=== PATIENT | female | born 1955 | race Caucasian/White ===

== ENCOUNTER 2016-07-18 07:55 | Emergency (ER) | payer OTHER ==
[2016-07-18] MEDS ORDERED: SODIUM CHLORIDE 0.9% 1,000 ML IV STA ×2 (08:34→10:12)
[2016-07-18] MEDS ORDERED: METOCLOPRAMIDE 5 MG/ML 2 ML VIAL IVP STA (08:34)
--- NOTE | 2016-07-18 08:38 | ED ---
General Adult HPI - General Chief complaint: Nausea/Vomiting/Diarrhea Stated complaint: NAUSEA, VOMITING, HEADACHE Time Seen by Provider: 07/18/16 08:31 Source: patient, RN notes reviewed Mode of arrival: EMS Limitations: no limitations - History of Present Illness Initial comments: 60-year-old female presents to the emergency Department chief complaint of headache nausea vomiting. Patient states she woke around 2:00 she had nausea vomiting she felt she could have diarrhea but she never actually did as well as a headache. Patient states that she is having hot flashes. Patient states he did not seem to be associated with the vomiting. Patient states due to the fact that she was feeling so bad she did call the ambulance bring her to the emergency department. Patient states that this time after receiving the medication and then her nausea and vomiting has improved her headache has slightly end. Patient states that this time she has no chest pain but she does have chest pain. Patient states that she felt normal yesterday all she's had over the last 2 days with a mild cold. Patient states that she was concerned due to her symptoms.Patient denies any recent fever, chills, shortness of breath , back pain, numbness or tingling, dysuria or hematuria, constipation or diarrhea, visual changes, or any other current symptoms. - Related Data Home Medications Medication Instructions Recorded Confirmed Cholecalciferol [Vitamin D3] 1,000 units PO DAILY 12/19/13 07/18/16 Enalapril/Hydrochlorothiazide 1 tab PO DAILY 12/19/13 07/18/16 [Vaseretic 5-12.5 mg] Omeprazole [PriLOSEC] 20 mg PO AC-BRKFST 12/19/13 07/18/16 Pravastatin Sodium [Pravachol] 40 mg PO DAILY 12/19/13 07/18/16 metFORMIN HCL [Glucophage] 500 mg PO DAILY 12/19/13 07/18/16 Cyanocobalamin [Vitamin B-12 1,000 mcg SQ QMONTH 07/18/16 07/18/16 Injection] FLUoxetine HCL [PROzac] 60 mg PO DAILY 07/18/16 07/18/16 Levothyroxine Sodium [Synthroid] 112 mcg PO DAILY 07/18/16 07/18/16 Meloxicam [Mobic] 7.5 mg PO DAILY 07/18/16 07/18/16 Potassium 595 mg PO DAILY 07/18/16 07/18/16 Ranitidine HCl [Zantac] 300 mg PO DAILY 07/18/16 07/18/16 Previous Rx's Medication Instructions Recorded Ciprofloxacin HCl [Cipro] 500 mg PO Q12HR #14 tablet 07/18/16 Metoclopramide [Reglan] 10 mg PO ACHS #10 tab 07/18/16 Allergies Allergy/AdvReac Type Severity Reaction Status Date / Time No Known Allergies Allergy Verified 07/18/16 08:41 Review of Systems ROS Statement: Those systems with pertinent positive or pertinent negative responses have been documented in the HPI. ROS Other: All systems not noted in ROS Statement are negative. Past Medical History Past Medical History: Diabetes Mellitus, GERD/Reflux, Hyperlipidemia, Osteoarthritis (OA), Thyroid Disorder History of Any Multi-Drug Resistant Organisms: None Reported Past Surgical History: Bariatric Surgery, Hernia Repair, Joint Replacement Additional Past Surgical History / Comment(s): UMBILICAL HERNIA, GASTRIC BYPASS( 2000), PANNICULECTOMY, VARICOSE VEINS, BREAST RECONSTRUCTION, FACE LIFT, FULL BODY LIFT, RIGHT KNEE REPLACEMENT (OCTOBER 2013), LEFT KNEE REPLACEMENT (DECEMBER 2013 ) Past Anesthesia/Blood Transfusion Reactions: Motion Sickness, Postoperative Nausea & Vomiting (PONV) Past Psychological History: Depression Smoking Status: Former smoker Past Alcohol Use History: Rare Past Drug Use History: None Reported General Exam - General Exam Comments Initial Comments: General: The patient is awake and alert, in no distress, and does not appear acutely ill. Eye: Pupils are equal, round and reactive to light, extra-ocular movements are intact; there is normal conjunctiva bilaterally. No signs of icterus. Ears, nose, mouth and throat: There are moist mucous membranes. Neck: The neck is supple, there is no tenderness. Cardiovascular: There is a regular rate and rhythm. No murmur, rub or gallop is appreciated. Respiratory: Lungs are clear to auscultation, respirations are non-labored, breath sounds are equal. No wheezes, stridor, rales, or rhonchi. Gastrointestinal: Soft, non-distended, non-tender abdomen without masses or organomegaly noted. There is no rebound or guarding present. No CVA tenderness. Bowel sounds are unremarkable. Back: There is no tenderness to palpation in the midline. There is no obvious deformity. No rashes noted. Musculoskeletal: Normal ROM, no tenderness, There is no pedal edema. There is no calf tenderness or swelling. Sensation intact. Pulses equal bilaterally 2+. Neurological: CN II-XII intact, There are no obvious motor or sensory deficits. Coordination appears grossly intact. Speech is normal. Skin: Skin is warm and dry and no rashes or lesions are noted. Psychiatric: Cooperative, appropriate mood & affect, normal judgment. Limitations: no limitations Course Vital Signs 07/18/16 07/18/16 08:10 09:30 Temperature 97.9 F Pulse Rate 72 74 Respiratory 18 18 Rate Blood Pressure 192/93 161/86 O2 Sat by Pulse 99 98 Oximetry EKG Findings - EKG Comments: EKG Findings:: normal sinus rhythm 75 bpm, normal axis, no atopy, no S-T depressions or elevations, prolonged QT Medical Decision Making - Medical Decision Making 60-year-old male presents emergency chief complaint of nausea and vomiting. Patient's blood work is reviewed. At this time patient does have positive nitrate in the urine as well as signs of dehydration. This time patient received a liter of fluids as well as IV antibiotics. We discussed return parameters and follow-up. Patient stated she understood and all questions were answered. At this time the patient will be discharged home. - Lab Data Result diagrams: 07/18/16 08:25 07/18/16 08:25 Lab Results 07/18/16 07/18/16 07/18/16 Range/Units 08:25 08:25 08:25 WBC 7.7 (3.8-10.6) k/uL RBC 4.69 (3.80-5.40) m/uL Hgb 12.7 (11.4-16.0) gm/dL Hct 40.0 (34.0-46.0) % MCV 85.3 (80.0-100.0) fL MCH 27.1 (25.0-35.0) pg MCHC 31.8 (31.0-37.0) g/dL RDW 13.2 (11.5-15.5) % Plt Count 311 (150-450) k/uL Neutrophils % 74 % Lymphocytes % 17 % Monocytes % 4 % Eosinophils % 2 % Basophils % 1 % Neutrophils # 5.7 (1.3-7.7) k/uL Lymphocytes # 1.3 (1.0-4.8) k/uL Monocytes # 0.3 (0-1.0) k/uL Eosinophils # 0.2 (0-0.7) k/uL Basophils # 0.0 (0-0.2) k/uL Hypochromasia Slight PT (9.0-12.0) sec INR (<1.1) APTT (22.0-30.0) sec Sodium 141 (137-145) mmol/L Potassium 4.2 (3.5-5.1) mmol/L Chloride 104 (98-107) mmol/L Carbon Dioxide 20 L (22-30) mmol/L Anion Gap 17 mmol/L BUN 13 (7-17) mg/dL Creatinine 0.70 (0.52-1.04) mg/dL Est GFR (MDRD) Af Amer >60 (>60 ml/min/1.73 sqM) Est GFR (MDRD) Non-Af >60 (>60 ml/min/1.73 sqM) Glucose 231 H (74-99) mg/dL Calcium 9.1 (8.4-10.2) mg/dL Magnesium 1.2 L (1.6-2.3) mg/dL Total Bilirubin 0.4 (0.2-1.3) mg/dL AST 24 (14-36) U/L ALT 34 (9-52) U/L Alkaline Phosphatase 86 (38-126) U/L Total Creatine Kinase 43 (30-135) U/L CK-MB (CK-2) 0.6 (0.0-2.4) ng/mL CK-MB (CK-2) Rel Index 1.4 Troponin I <0.012 (0.000-0.034) ng/mL Total Protein 6.9 (6.3-8.2) g/dL Albumin 4.1 (3.5-5.0) g/dL Amylase 77 (30-110) U/L Lipase 155 (23-300) U/L Urine Color Urine Appearance (Clear) Urine pH (5.0-8.0) Ur Specific [place] (1.001-1.035) Urine Protein (Negative) Urine Glucose (UA) (Negative) Urine Ketones (Negative) Urine Blood (Negative) Urine Nitrate (Negative) Urine Bilirubin (Negative) Urine Urobilinogen (<2.0) mg/dL Ur Leukocyte Esterase (Negative) Urine RBC (0-5) /hpf Urine WBC (0-5) /hpf Ur Squamous Epith Cells (0-4) /hpf Urine Bacteria (None) /hpf Urine Mucus (None) /hpf 07/18/16 07/18/16 Range/Units 08:25 08:44 WBC (3.8-10.6) k/uL RBC (3.80-5.40) m/uL Hgb (11.4-16.0) gm/dL Hct (34.0-46.0) % MCV (80.0-100.0) fL MCH (25.0-35.0) pg MCHC (31.0-37.0) g/dL RDW (11.5-15.5) % Plt Count (150-450) k/uL Neutrophils % % Lymphocytes % % Monocytes % % Eosinophils % % Basophils % % Neutrophils # (1.3-7.7) k/uL Lymphocytes # (1.0-4.8) k/uL Monocytes # (0-1.0) k/uL Eosinophils # (0-0.7) k/uL Basophils # (0-0.2) k/uL Hypochromasia PT 10.5 (9.0-12.0) sec INR 1.0 (<1.1) APTT 20.9 L (22.0-30.0) sec Sodium (137-145) mmol/L Potassium (3.5-5.1) mmol/L Chloride (98-107) mmol/L Carbon Dioxide (22-30) mmol/L Anion Gap mmol/L BUN (7-17) mg/dL Creatinine (0.52-1.04) mg/dL Est GFR (MDRD) Af Amer (>60 ml/min/1.73 sqM) Est GFR (MDRD) Non-Af (>60 ml/min/1.73 sqM) Glucose (74-99) mg/dL Calcium (8.4-10.2) mg/dL Magnesium (1.6-2.3) mg/dL Total Bilirubin (0.2-1.3) mg/dL AST (14-36) U/L ALT (9-52) U/L Alkaline Phosphatase (38-126) U/L Total Creatine Kinase (30-135) U/L CK-MB (CK-2) (0.0-2.4) ng/mL CK-MB (CK-2) Rel Index Troponin I (0.000-0.034) ng/mL Total Protein (6.3-8.2) g/dL Albumin (3.5-5.0) g/dL Amylase (30-110) U/L Lipase (23-300) U/L Urine Color Light Yellow Urine Appearance Clear (Clear) Urine pH 6.0 (5.0-8.0) Ur Specific [place] 1.008 (1.001-1.035) Urine Protein Trace H (Negative) Urine Glucose (UA) 4+ H (Negative) Urine Ketones 2+ H (Negative) Urine Blood Negative (Negative) Urine Nitrate Positive H (Negative) Urine Bilirubin Negative (Negative) Urine Urobilinogen <2.0 (<2.0) mg/dL Ur Leukocyte Esterase Moderate H (Negative) Urine RBC 2 (0-5) /hpf Urine WBC 16 H (0-5) /hpf Ur Squamous Epith Cells <1 (0-4) /hpf Urine Bacteria Occasional H (None) /hpf Urine Mucus Rare H (None) /hpf - Radiology Data Radiology results: report reviewed, image reviewed Disposition Clinical Impression: UTI (urinary tract infection), Nausea & vomiting Disposition: HOME SELF-CARE Condition: Stable Instructions: Urinary Tract Infection in Women (ED) Additional Instructions: Please use medication as discussed. Please follow up with family doctor if symptoms have not improved over the next two days. Please return to the emergency room if your symptoms increase or worsen or for any other concerns. Prescriptions: Ciprofloxacin HCl [Cipro] 500 mg PO Q12HR #14 tablet Metoclopramide [Reglan] 10 mg PO ACHS #10 tab Referrals: Lui Francois MD [Primary Care Provider] - 1-2 days Time of Disposition: 10:33
[2016-07-18 09:03] LABS: Basophils % (A) 1 %; CH 26.8; CHCM 31.5; Eosinophils # (A) 0.2 k/uL (0-0.7); Eosinophils % (A) 2 %; HDW 2.63; HGB 12.7 gm/dL (11.4-16.0); Hypochromasia Slight; Luc # (Auto) 0.23; Luc % (Auto) 3; Lymphocytes # (A) 1.3 k/uL (1.0-4.8); Lymphocytes % (A) 17 %; MCH 27.1 pg (25.0-35.0); MCHC 31.8 g/dL (31.0-37.0); MCV 85.3 fL (80.0-100.0); Mean Platelet Volume 6.5; Monocytes # (A) 0.3 k/uL (0-1.0); Monocytes % (A) 4 %; Neutrophils # (A) 5.7 k/uL (1.3-7.7); Neutrophils % (A) 74 %; RBC 4.69 m/uL (3.80-5.40); RDW 13.2 % (11.5-15.5); WBC 7.7 k/uL (3.8-10.6); WBC (Perox) 8.01
[2016-07-18 09:08] LABS: Appearance,Urine Clear (Clear); Bacteria,Urine Occasional /hpf; Bilirubin,Urine Negative (Negative); Glucose,Urine (UA) 4+ (Negative); Leukocyte Esterase,Urine Moderate (Negative); Mucus,Urine Rare /hpf; Nitrite,Urine Positive (Negative); Particle Count 16754; Protein,Urine Trace (Negative); RBC,Urine 2 /hpf (0-5); Specific Gravity,Urine 1.008 (1.001-1.035); Squamous Epithelial Cell,Urine <1 /hpf (0-4); UA Billing (MACRO vs. MICRO) MICRO; Urobilinogen,Urine <2.0 mg/dL (<2.0); WBC,Urine 16 /hpf (0-5)
[2016-07-18 09:17] LABS: ALT 34 U/L (9-52); AST 24 U/L (14-36); Alkaline Phosphatase 86 U/L (38-126); Amylase 77 U/L (30-110); Anion Gap 17 mmol/L; Blood Urea Nitrogen 13 mg/dL (7-17); Calcium 9.1 mg/dL (8.4-10.2); Carbon Dioxide 20 mmol/L (22-30); Chloride 104 mmol/L (98-107); Glucose 231 mg/dL (74-99); Magnesium 1.2 mg/dL (1.6-2.3); Non-African American GFR(MDRD) >60 (>60 ml/min/1.73 sqM); Potassium 4.2 mmol/L (3.5-5.1); Sodium 141 mmol/L (137-145); Total Bilirubin 0.4 mg/dL (0.2-1.3); Total Protein 6.9 g/dL (6.3-8.2)
[2016-07-18 09:19] LABS: Prothrombin Time 10.5 sec (9.0-12.0)
[2016-07-18 09:21] LABS: Ketones,Urine 2+ (Negative)
[2016-07-18 09:22] LABS: Partial Thromboplastin Time 20.9 sec (22.0-30.0)
[2016-07-18 09:23] LABS: Creatine Kinase 43 U/L (30-135)
[2016-07-18 09:36] LABS: Creatine Kinase MB 0.6 ng/mL (0.0-2.4); Troponin I <0.012 ng/mL (0.000-0.034)
--- NOTE | 2016-07-18 09:53 | CT ---
EXAMINATION TYPE: CT brain wo con DATE OF EXAM: 07/18/2016 9:49 AM COMPARISON: NONE HISTORY: 60-year-old female with nausea & vomitting, Headache and Dizziness TECHNIQUE: Examination was done in axial plane without intravenous contrast. Coronal and sagittal reconstructio ns performed. CT DLP: 1012.70 mGycm Automated exposure control for dose reduction was used. FINDINGS: There is no evidence of acute intracranial hemorrhage, acute ischemic changes, mass, mass-effect, or extra-axial fluid collection. There is no effacement of cerebral sulci or basal subarachnoid cister ns. There is no hydrocephalus. There is no midline shift. Bailey-white matter distinction is preserv ed. Mild bifrontal cortical volume loss. Benign basal ganglia calcifications on the left. Patient's gaze is divergent suggesting underlying strabismus. Paranasal sinuses and mastoid air cells are well pneumatized. IMPRESSION: Mild bifrontal atrophy without acute intracranial abnormality seen.
--- NOTE | 2016-07-18 10:07 | XR ---
EXAMINATION TYPE: XR chest 2V DATE OF EXAM: 07/18/2016 9:51 AM COMPARISON: NONE HISTORY: Chest pain, nausea and vomiting TECHNIQUE: Frontal and lateral views of the chest are obtained. FINDINGS: There is no focal air space opacity, pleural effusion, or pneumothorax seen. The cardiac silhouette size is within normal limits. The osseous structures are intact. IMPRESSION: No acute cardiopulmonary process.
[2016-07-18] MEDS ORDERED: KETOROLAC 30 MG/ML 1 ML VIAL IVP STA (10:31)
[2016-07-18 11:36] VITALS: BP 149/79; PULSE 78; RESP 16; TEMP 97.8
== END 2016-07-18 11:35 | disposition home or self-care (01) ==
LOC: EC 07:55
DX: N39.0 Urinary tract infection, site not specified (principal); R11.2 Nausea with vomiting, unspecified; R51 Headache; E11.9 Type 2 diabetes mellitus without complications; R07.9 Chest pain, unspecified; K21.9 Gastro-esophageal reflux disease without esophagitis; E78.5 Hyperlipidemia, unspecified; E07.9 Disorder of thyroid, unspecified; M19.90 Unspecified osteoarthritis, unspecified site; Z79.84 Long term (current) use of oral hypoglycemic drugs; Z87.891 Personal history of nicotine dependence; Z79.899 Other long term (current) drug therapy
CPT/HCPCS: 99285; 96365; 96375 ×2; 96361 ×2; 36415; 93005; 80053; 82150; 82550; 82553; 83690; 83735; 84484; 85025; 85610; 85730; 81001; 71020; 70450; J2765; J0696; J1885

== ENCOUNTER 2019-07-12 06:52 | Day surgery (SDC) | payer OTHER ==
[2019-07-04 13:31] VITALS: BMI 37.2
[~2019-07-12 06:52] MED LIST: LACTATED RINGERS 1,000 ML IV SCH; LIDOCAINE 1% 20 ML VIAL (10MG/ML) FOR IV START INTRADERMA PRN
[2019-07-12 07:03] VITALS: TEMP 97.6
[2019-07-12 07:15] LABS: Glucose,Whole Blood 153 mg/dL (75-99)
[2019-07-12] MEDS ORDERED: PROPOFOL 10 MG/ML 20 ML VIAL IV ONE (07:46)
--- NOTE | 2019-07-12 08:06 | P.PCN ---
Date of Procedure: 07/12/19 Procedure(s) Performed: BRIEF HISTORY: Patient is a 63-year-old pleasant white male scheduled for an elective colonoscopy as a part of screening for colorectal neoplasia. She has family history of colon cancer diagnosed in her maternal and paternal grandmother in their 60s and 70s suspected. Her last colonoscopy was 5 years ago. PROCEDURE PERFORMED: Colonoscopy. PREOPERATIVE DIAGNOSIS:Screening for colon cancer/family history of colon cancer]. IV sedation per Anesthesia. PROCEDURE: After informed consent was obtained, the patient, was brought into the endoscopy unit. IV sedation was administered by Anesthesia under continuous monitoring. Digital rectal examination was normal. Initially the Olympus CF-160 flexible video colonoscope was then inserted in the rectum, gradually advanced into the cecum without any difficulty. Careful examination was performed as the scope was gradually being withdrawn. Ileocecal valve and the appendiceal orifice were visualized and appeared normal. Prep was excellent. Mucosa of the cecum, ascending colon, transverse colon, descending colon, sigmoid colon, and rectum appeared normal. Retroflexion was performed in the rectum and no lesions were seen. The patient tolerated the procedure well. IMPRESSION: Normal-appearing colon from rectum to cecum with no evidence of colorectal neoplasia. RECOMMENDATIONS: Findings of this examination were discussed with the patient as well as her family. She was advised to have a repeat screening colonoscopy in 5 years because of colon cancer.
[2019-07-12 08:30] VITALS: BP 114/74; PULSE 69; RESP 16
== END 2019-07-12 08:48 | disposition home or self-care (01) ==
LOC: ORWHC2ENDO 06:52
PROVIDERS: ATTEND Internal Medicine Gastroenterology
DX: Z12.11 Encounter for screening for malignant neoplasm of colon (principal); Z80.0 Family history of malignant neoplasm of digestive organs; F32.9 Major depressive disorder, single episode, unspecified; I10 Essential (primary) hypertension; E11.9 Type 2 diabetes mellitus without complications; Z79.890 Hormone replacement therapy; Z79.899 Other long term (current) drug therapy; Z79.84 Long term (current) use of oral hypoglycemic drugs; Z98.84 Bariatric surgery status; Z87.19 Personal history of other diseases of the digestive system; Z98.890 Other specified postprocedural states; Z96.653 Presence of artificial knee joint, bilateral
CPT/HCPCS: J2704; G0105

== ENCOUNTER → 2019-09-14 | Outpatient (CLI) | payer OTHER ==
[2019-09-14 09:01] LABS: HGB 11.4 gm/dL (11.4-16.0); Hypochromasia Moderate; MCH 24.4 pg (25.0-35.0); MCHC 30.7 g/dL (31.0-37.0); MCV 79.4 fL (80.0-100.0); Mean Platelet Volume 6.6; Platelet Count 413 k/uL (150-450); RBC 4.66 m/uL (3.80-5.40); RDW 14.2 % (11.5-15.5); WBC 7.4 k/uL (3.8-10.6)
[2019-09-14 15:56] LABS: African American GFR (CKD) 79.4 (60.0-200.0); Albumin 4.5 g/dL (3.80-4.90); Albumin/Globulin Ratio 1.96 (1.60-3.17); Anion Gap 7.3 mmol/L (4.00-12.00); Calcium 9.9 mg/dL (8.7-10.3); Carbon Dioxide 28.7 mmol/L (21.6-31.8); Chol/HDL Ratio 3.34; Globulin 2.3 g/dL (1.6-3.3); LDL Cholesterol,Calculated 105.4 mg/dL (0.0-131.0); Non-African American GFR(CKD) 68.5 (60.0-200.0); Potassium 4.5 mmol/L (3.5-5.5); Total Bilirubin 0.3 mg/dL (0.2-1.2); Total Protein 6.8 g/dL (6.2-8.2); VLDL Calculation 39.6 mg/dL (5.00-40.00)
[2019-09-14 17:13] LABS: Hemoglobin A1C 8.7 % (4.0-6.0)
== END | disposition home or self-care (01) ==
LOC: LABWHC1 08:21
PROVIDERS: ATTEND Family Medicine
DX: I10 Essential (primary) hypertension (principal); E11.9 Type 2 diabetes mellitus without complications; E03.9 Hypothyroidism, unspecified; E78.00 Pure hypercholesterolemia, unspecified
CPT/HCPCS: 36415; 80053; 80061; 83036; 84443; 85027

== ENCOUNTER → 2020-03-05 | Outpatient (CLI) | payer OTHER ==
--- NOTE | 2020-03-06 08:47 | MM ---
Reason for exam: screening (asymptomatic). Last mammogram was performed 4 years and 9 months ago. History: Patient is postmenopausal and is nulliparous. Retro-pectoral saline implants in both breasts, May 2007. Implant Removal of both breasts, May 2005. Implants in both breasts, June 2003. Physical Findings: A clinical breast exam by your physician is recommended on an annual basis and results should be correlated with mammographic findings. MG Screening Mammo Implant/CAD Bilateral CC, MLO, and ID view(s) were taken. Prior study comparison: June 12, 2015, bilateral MG screening mammo implant/CAD. October 25, 2012, CAD bilateral diagnostic mammogram. There are scattered fibroglandular densities. Benign appearing bilateral calcifications. No significant changes when compared with prior studies. ASSESSMENT: Benign, BI-RAD 2 RECOMMENDATION: Routine screening mammogram of both breasts in 1 year.
== END | disposition home or self-care (01) ==
LOC: RADMAMWWP 10:10
PROVIDERS: ATTEND Family Medicine
DX: Z12.31 Encounter for screening mammogram for malignant neoplasm of breast (principal); Z98.86 Personal history of breast implant removal
CPT/HCPCS: 77067

== ENCOUNTER → 2020-09-04 | Outpatient (CLI) | payer OTHER ==
[2020-09-04 15:07] LABS: HGB 10.4 g/dL (12.0-15.0); MCH 23.4 pg (27.0-32.0); MCHC 29.7 g/dL (32.0-37.0); MCV 78.7 fL (80.0-97.0); Mean Platelet Volume 9.4 fL (9.5-12.2); Platelet Count 373 X 10*3/uL (140-440); RBC 4.45 X 10*6/uL (4.10-5.20); RDW 16.3 % (11.5-14.5); WBC 7.04 X 10*3/uL (4.50-10.00)
[2020-09-04 15:34] LABS: African American GFR (CKD) 69.4 (60.0-200.0); Albumin 4.6 g/dL (3.80-4.90); Anion Gap 7.3 mmol/L (4.00-12.00); Calcium 9.5 mg/dL (8.7-10.3); Carbon Dioxide 28.7 mmol/L (21.6-31.8); Chol/HDL Ratio 3.62; Globulin 2.3 g/dL (1.6-3.3); LDL Cholesterol,Calculated 108.4 mg/dL (0.0-131.0); Non-African American GFR(CKD) 59.9 (60.0-200.0); Potassium 4.4 mmol/L (3.5-5.5); Total Bilirubin 0.4 mg/dL (0.3-1.2); Total Protein 6.9 g/dL (6.2-8.2); VLDL Calculation 35.6 mg/dL (5.00-40.00)
== END | disposition home or self-care (01) ==
LOC: LABWHC1 09:41
PROVIDERS: ATTEND Family Medicine
DX: E11.9 Type 2 diabetes mellitus without complications (principal); I10 Essential (primary) hypertension; E78.5 Hyperlipidemia, unspecified; E03.9 Hypothyroidism, unspecified
CPT/HCPCS: 36415; 80053; 80061; 83036; 84443; 85027

== ENCOUNTER → 2020-09-18 | Outpatient (CLI) | payer OTHER | END | disposition home or self-care (01) | LOC: LABWHC1 11:34 | PROVIDERS: ATTEND Family Medicine | DX: Z86.16 Personal history of COVID-19 (principal) | CPT/HCPCS: 36415; 86769 ==

== ENCOUNTER 2021-02-02 06:41 | Day surgery (SDC) | payer OTHER ==
[2021-01-29 14:08] VITALS: BMI 37.2
[~2021-02-02 06:41] MED LIST changes: -LIDOCAINE 1% 20 ML VIAL (10MG/ML) FOR IV START INTRADERMA PRN
[2021-02-02 07:08] VITALS: RESP 16; TEMP 97.9
[2021-02-02] MEDS ORDERED: LIDOCAINE 1% (10MG/ML) FOR IV START INTRADERMA ONE (07:18)
[2021-02-02 07:19] LABS: Glucose,Whole Blood 145 mg/dL (75-99)
[2021-02-02] MEDS ORDERED: PROPOFOL 10 MG/ML 20 ML VIAL IV ONE (07:28)
[2021-02-02] MEDS ORDERED: LIDOCAINE 1% INJ 10MG/ML (20 ML MDV) ONE (07:28)
--- NOTE | 2021-02-02 07:50 | P.PCN ---
Date of Procedure: 02/02/21 Description of Procedure: BRIEF HISTORY: 65-year-old female presenting for esophagogastroduodenoscopy for evaluation of anemia. Patient is status post gastric bypass in the remote past. Last colonoscopy performed in 06/2019 with findings of a normal-appearing colon at that time. She denies any signs or symptoms of GI bleeding. She is seeing a evs manager for anemia. PROCEDURE PERFORMED: Esophagogastroduodenoscopy with biopsy. PREOPERATIVE DIAGNOSIS: Anemia, history of bariatric surgery. ESTIMATED BLOOD LOSS: Minimal. IV sedation per anesthesia. PROCEDURE: After informed consent was obtained, the patient was brought into the endoscopy unit. IV sedation was administered by Anesthesia under continuous monitoring. Initially the Olympus GIF-190 video endoscope was inserted into the mouth. Esophagus intubated without any difficulty. It was gradually advanced into the stomach and through the anastomosis and into the small bowel. 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 Small bowel appeared grossly normal with random biopsies taken. The scope was then withdrawn to the anastomotic site which appeared intact with no ulcerations or erosions noted. The gastric remnant also appeared healthy with biopsies taken. The scope was then withdrawn into the esophagus. The GE junction was located at 37 cm from the incisors and appeared regular. The esophagus appeared normal. There were no ulcerations or erosions seen. The patient tolerated the procedure well. IMPRESSION: 1. 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 2. No ulcerations, erosions or other pathology to explain anemia were noted. 3. Biopsies of the small bowel and gastric remnant. RECOMMENDATIONS: The findings of this examination were discussed with the patient and her family. Okay to resume diet. Okay to resume medications. Await pathology from biopsies. Continue follow-up with hematology. Patient's anemia may be related to prior gastric bypass and malabsorption of iron and she should follow-up as scheduled.
[2021-02-02 08:00] VITALS: BP 132/87; PULSE 74
== END 2021-02-02 08:30 | disposition home or self-care (01) ==
LOC: ORWHC2ENDO 06:41
PROVIDERS: ATTEND Internal Medicine
DX: K29.50 Unspecified chronic gastritis without bleeding (principal); D64.9 Anemia, unspecified; I10 Essential (primary) hypertension; E78.5 Hyperlipidemia, unspecified; E11.9 Type 2 diabetes mellitus without complications; K21.9 Gastro-esophageal reflux disease without esophagitis; Z79.84 Long term (current) use of oral hypoglycemic drugs; Z98.84 Bariatric surgery status; Z98.890 Other specified postprocedural states; Z79.1 Long term (current) use of non-steroidal anti-inflammatories (NSAID); Z79.890 Hormone replacement therapy; Z79.899 Other long term (current) drug therapy
CPT/HCPCS: 88305; 88342; 88341; 43239; J2001; J2704

== ENCOUNTER → 2021-08-24 | Outpatient (CLI) | payer OTHER ==
[2021-08-24 14:46] LABS: HCT 43.3 % (37.2-46.3); MCH 30.1 pg (27.0-32.0); MCHC 32.3 g/dL (32.0-37.0); MCV 93.1 fL (80.0-97.0); NRBC Per 100 WBC 0 /100 WBCS (0.0-0.0); Platelet Count 320 X 10*3/uL (140-440); RBC 4.65 X 10*6/uL (4.10-5.20); RDW 12.2 % (11.5-14.5); WBC 5.88 X 10*3/uL (4.50-10.00)
[2021-08-24 15:11] LABS: % Iron Saturation 35.71 (12.00-45.00); ALT 11 U/L (8-44); AST 20 U/L (13-35); African American GFR (CKD) 93.3 (60.0-200.0); Albumin 4.2 g/dL (3.8-4.9); Albumin/Globulin Ratio 1.36 (1.60-3.17); Alkaline Phosphatase 55 U/L (41-126); BUN/Creat Ratio 14.12 Ratio (12.00-20.00); Calcium 9.7 mg/dL (8.7-10.3); Carbon Dioxide 23.4 mmol/L (20.0-27.5); Chloride 99 mmol/L (96-109); Chol/HDL Ratio 4.46 Ratio; Globulin 3.1 g/dL (1.6-3.3); Glucose 147 mg/dL (70-110); Iron 114 ug/dL (50-170); LDL Cholesterol,Calculated 123.4 mg/dL (0.0-131.0); Non-African American GFR(CKD) 80.5 (60.0-200.0); Potassium 4.2 mmol/L (3.5-5.5); Sodium 138 mmol/L (135-145); Total Iron Binding Capacity 319 ug/dL (228-460); Total Protein 7.3 g/dL (6.2-8.2); Vitamin B12 >2000.0 pg/mL (200.0-944.0)
== END | disposition home or self-care (01) ==
LOC: LABWHC1 08:51
PROVIDERS: ATTEND Family Medicine
DX: I10 Essential (primary) hypertension (principal); E03.9 Hypothyroidism, unspecified; D64.9 Anemia, unspecified
CPT/HCPCS: 36415; 80053; 80061; 82607; 82728; 82746; 83036; 83540; 83550; 84443; 85027

== ENCOUNTER → 2021-10-15 | Outpatient (CLI) | payer OTHER ==
--- NOTE | 2021-10-16 17:35 | US ---
EXAMINATION TYPE: US transvaginal DATE OF EXAM: 10/15/2021 COMPARISON: NONE CLINICAL HISTORY: 66-year-old female R10.2 Bilateral Pelvic Pain. TECHNIQUE: Transvaginal (TV). Date of LMP: Patient states she was in her 30's when she went through menopause FINDINGS: EXAM MEASUREMENTS: Uterus: 5.6 x 2.0 x cm Endometrial Stripe: 0.4 cm Right Ovary: not seen Left Ovary: not seen 1. Uterus: Anteverted 2. Endometrium: There appears to be focal fluid measuring 2 mm thick along the fundal uterine cavity. Additional fluid in endocervical canal measuring 1.9 x 0.6 x 1.0cm 3. Right Ovary: Obscured by overlying bowel gas and/or atrophy 4. Left Ovary: Obscured by overlying bowel gas and/or atrophy 5. Bilateral Adnexa: wnl 6. Posterior cul-de-sac: wnl IMPRESSION: 1. Small amount of fluid along the fundal uterine cavity measuring 2 mm thick. Additional fluid withi n the endocervical canal. Endometrial stripe measuring approximately 4 mm thick. 2. Unable to visualize either ovary. 3. No pelvic free fluid.
== END | disposition home or self-care (01) ==
LOC: RADUSWWP 15:15
PROVIDERS: ATTEND Obstetrics & Gynecology
DX: R93.89 Abnormal findings on diagnostic imaging of other specified body structures (principal)
CPT/HCPCS: 76830

== ENCOUNTER → 2022-02-16 | Outpatient (CLI) | payer OTHER ==
[2022-02-16 15:03] LABS: HCT 44.1 % (37.2-46.3); HGB 13.8 g/dL (12.0-15.0); MCH 29.1 pg (27.0-32.0); MCHC 31.3 g/dL (32.0-37.0); Mean Platelet Volume 9.9 fL (9.5-12.2); NRBC Per 100 WBC 0 /100 WBCS (0.0-0.0); Platelet Count 318 X 10*3/uL (140-440); RBC 4.74 X 10*6/uL (4.10-5.20); WBC 6.77 X 10*3/uL (4.50-10.00)
[2022-02-16 16:08] LABS: Chol/HDL Ratio 4.96 Ratio; LDL Cholesterol,Calculated 131.6 mg/dL (0.0-131.0)
[2022-02-16 16:09] LABS: % Iron Saturation 31.34 (12.00-45.00); ALT 16 U/L (8-44); AST 19 U/L (13-35); African American GFR (CKD) 86.8 (60.0-200.0); Albumin 4.2 g/dL (3.8-4.9); Albumin/Globulin Ratio 1.41 (1.60-3.17); Alkaline Phosphatase 60 U/L (41-126); BUN/Creat Ratio 17.78 Ratio (12.00-20.00); Blood Urea Nitrogen 14.7 mg/dL (9.0-27.0); Carbon Dioxide 25.3 mmol/L (20.0-27.5); Chloride 100 mmol/L (96-109); Glucose 170 mg/dL (70-110); Iron 104 ug/dL (50-170); Non-African American GFR(CKD) 74.9 (60.0-200.0); Potassium 4.4 mmol/L (3.5-5.5); Sodium 138 mmol/L (135-145); Total Iron Binding Capacity 332 ug/dL (228-460); Total Protein 7.2 g/dL (6.2-8.2); Vitamin B12 >2000.0 pg/mL (200.0-944.0)
== END | disposition home or self-care (01) ==
LOC: LABWHC1 09:05
PROVIDERS: ATTEND Family Medicine
DX: I10 Essential (primary) hypertension (principal); E11.9 Type 2 diabetes mellitus without complications; E78.5 Hyperlipidemia, unspecified; E03.9 Hypothyroidism, unspecified; D64.9 Anemia, unspecified
CPT/HCPCS: 36415; 80053; 80061; 82607; 82728; 82746; 83036; 83540; 83550; 84443; 85027

== ENCOUNTER → 2023-08-15 | Outpatient (CLI) | payer MEDICARE ==
[2023-08-15 18:04] LABS: % Iron Saturation 27.22 (12.00-45.00); ALT 16 U/L (8-44); AST 14 U/L (13-35); Albumin 4.2 g/dL (3.8-4.9); Albumin/Globulin Ratio 1.62 Ratio (1.60-3.17); Alkaline Phosphatase 61 U/L (41-126); BUN/Creat Ratio 20.89 Ratio (12.00-20.00); Blood Urea Nitrogen 18.8 mg/dL (9.0-27.0); Calcium 9.9 mg/dL (8.7-10.3); Carbon Dioxide 27.2 mmol/L (21.6-31.8); Chloride 101 mmol/L (96-109); Chol/HDL Ratio 3.98 Ratio; Globulin 2.6 g/dL (1.6-3.3); Glucose 139 mg/dL (70-110); Iron 95 UG/DL (50-170); LDL Cholesterol,Calculated 119.3 mg/dL (0.0-131.0); Potassium 4.4 mmol/L (3.5-5.5); Sodium 138 mmol/L (135-145); Total Bilirubin 0.2 mg/dL (0.3-1.2); Total Iron Binding Capacity 349 UG/DL (228-460); Total Protein 6.8 g/dL (6.2-8.2)
[2023-08-15 19:38] LABS: HCT 42.9 % (37.2-46.3); HGB 13.7 g/dL (12.0-15.0); MCH 29.1 pg (27.0-32.0); MCHC 31.9 g/dL (32.0-37.0); MCV 91.1 FL (80.0-97.0); Mean Platelet Volume 9.2 FL (9.5-12.2); NRBC Per 100 WBC 0 X 10*3/uL (0.00-0.01); Platelet Count 318 X 10*3/uL (140-440); RBC 4.71 X 10*6/uL (4.10-5.20); RDW 12.7 % (11.5-14.5); WBC 6.38 X 10*3/uL (4.50-10.00)
== END | disposition home or self-care (01) ==
LOC: LABWHC1 10:17
PROVIDERS: ATTEND Family Medicine
DX: I10 Essential (primary) hypertension (principal); E78.00 Pure hypercholesterolemia, unspecified; E03.9 Hypothyroidism, unspecified; E11.9 Type 2 diabetes mellitus without complications; D64.9 Anemia, unspecified
CPT/HCPCS: 36415; 80053; 80061; 82607; 82728; 82746; 83036; 83540; 83550; 84443; 85027

== ENCOUNTER → 2024-04-11 | Outpatient (CLI) | payer MEDICARE ==
--- NOTE | 2024-04-12 08:06 | MM ---
Reason for Exam: Hx of breast augmentation, asymptomatic. Last mammogram was performed 4 year(s) and 1 month(s) ago. Patient History: Menarche at age 13. Patient has no children. Postmenopausal. 05/2005, Bilateral Implant Removal. 05/2007, Bilateral Implants. 06/2003, Bilateral Implants. Risk Values: Arlen 5 year model risk: 2.0%. NCI Lifetime model risk: 7.3%. Prior Study Comparison: 04/07/2008 Bilateral Diagnostic Mammogram, [facility]. 04/08/2009 Bilateral Diagnostic Mammogram, [facility]. 10/25/2012 Bilateral Diagnostic Mammogram, [facility]. 06/12/2015 Bilateral Screening Mammogram, [facility]. 03/05/2020 Bilateral Screening Mammogram, [facility]. Tissue Density: There are scattered areas of fibroglandular density. Findings: Analyzed By CAD. There is no suspicious group of microcalcifications or new suspicious mass in either breast. Bilateral breast implant surgery. Benign calcifications. Mild irregularity right breast implant should be correlated clinically. Stable from prior exam. Overall Assessment: Benign, BI-RAD 2 Management: Screening Mammogram of both breasts in 1 year. . Patient should continue monthly self-breast exams. A clinical breast exam by your physician is recommended on an annual basis. This exam should not preclude additional follow-up of suspicious palpable abnormalities. Note on Arlen scores and lifetime risk: 1. A Arlen score greater than 3% is considered moderate risk. If this is the case, consider specialist referral to assess eligibility for a risk reducing agent. 2. If overall lifetime risk for the development of breast cancer is 20% or higher, the patient may qualify for future screening with alternating mammogram and breast MRI. [facility], , 04/12/2024 8:03 AM. Electronically signed and approved by: Travon Leach M.D. Radiologis
== END | disposition home or self-care (01) ==
LOC: RADMAMWWP 12:36
PROVIDERS: ATTEND Family Medicine
CPT/HCPCS: 77063; 77067

== ENCOUNTER 2024-09-24 07:07 | Day surgery (SDC) | payer MEDICARE ==
[~2024-09-24 07:07] MED LIST changes: -LACTATED RINGERS 1,000 ML IV SCH; +LIDOCAINE 1% (10MG/ML) FOR IV START INTRADERMA PRN
[2024-09-24] MEDS: IV FLUID CONTINUATION 1,000 ML IV ONE (07:23)
[2024-09-24 07:27] VITALS: TEMP 97.4
[2024-09-24] MEDS: LACTATED RINGERS 1,000 ML IV SCH (07:33)
[2024-09-24 07:42] LABS: Glucose,Whole Blood 145 mg/dL (70-110)
[2024-09-24] MEDS ORDERED: PROPOFOL 10 MG/ML 20 ML VIAL IV ONE (08:37)
--- NOTE | 2024-09-24 08:54 | P.PCN ---
Date of Procedure: 09/24/24 Procedure(s) Performed: BRIEF HISTORY: Patient is a 69-year-old pleasant white female scheduled for an elective colonoscopy as a part of screening for colon cancer and family history of colon cancer. Both grandmothers on maternal and paternal side were diagnosed with colon cancer in the 60s and 70s respectively. PROCEDURE PERFORMED: Colonoscopy. PREOPERATIVE DIAGNOSIS: Screening for colon cancer and family history of colon cancer. IV sedation per Anesthesia. PROCEDURE: After informed consent was obtained, the patient, was brought into the endoscopy unit. IV sedation was administered by Anesthesia under continuous monitoring. Digital rectal examination was normal. Initially the Olympus CF-160 flexible video colonoscope was then inserted in the rectum, gradually advanced into the cecum without any difficulty. Careful examination was performed as the scope was gradually being withdrawn. Ileocecal valve and the appendiceal orifice were visualized and appeared normal. Prep was excellent. Mucosa of the cecum, ascending colon, transverse colon, descending colon, sigmoid colon, and rectum appeared normal. Retroflexion was performed in the rectum and no lesions were seen. The patient tolerated the procedure well. IMPRESSION: Normal-appearing colon from rectum to cecum with no evidence of colorectal neoplasia. RECOMMENDATIONS: Findings of this examination were discussed with the patient as well as her family.. She was advised to have repeat screening colonoscopy in 5 years because of the family history of colon cancer.
[2024-09-24 09:01] VITALS: RESP 16
[2024-09-24 09:14] VITALS: BP 123/79; PULSE 72
== END 2024-09-24 09:28 | disposition home or self-care (01) ==
LOC: ORWHC2ENDO 07:07
PROVIDERS: ATTEND Internal Medicine Gastroenterology
DX: Z12.11 Encounter for screening for malignant neoplasm of colon (principal); K21.9 Gastro-esophageal reflux disease without esophagitis; E11.9 Type 2 diabetes mellitus without complications; E07.9 Disorder of thyroid, unspecified; I10 Essential (primary) hypertension; E78.5 Hyperlipidemia, unspecified; F32.A Depression, unspecified; M19.90 Unspecified osteoarthritis, unspecified site; Z87.891 Personal history of nicotine dependence; Z80.0 Family history of malignant neoplasm of digestive organs; Z79.84 Long term (current) use of oral hypoglycemic drugs; Z79.899 Other long term (current) drug therapy
CPT/HCPCS: J2704; G0105; 45378